=== PATIENT | female | born 1950 | race Caucasian/White ===

== ENCOUNTER 2023-10-17 12:56 | Outpatient (REF) | payer MEDICARE, MEDICAID, SELFPAY ==
[2023-10-17 15:30] LABS: INR 3.65
== END 2023-10-17 12:57 | disposition home or self-care (01) ==
LOC: LAB 12:56
DX: Z79.01 Long term (current) use of anticoagulants (principal)
CPT/HCPCS: 36415; 85610

== ENCOUNTER 2024-05-12 07:44 | Emergency (ER) | payer MEDICARE, MEDICAID, SELFPAY ==
[2024-05-12] VITALS (35 sets, daily range): BP systolic 121–152; BP diastolic 61–120; PULSE 76–94; RESP 14; TEMP 36.6; O2SAT 81–100; BMI 18.5
--- NOTE | 2024-05-12 07:48 | ECG_ITS ---
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
--- NOTE | 2024-05-12 07:54 | ED_ITS ---
HPI HPI - General Adult General Chief complaint: Altered Mental Status Stated complaint: ALTERED MENTAL STATUS Time Seen by Provider: 05/12/24 07:48 History of Present Illness HPI narrative: Patient is a 73-year-old female who is presenting to the ER with chief complaint of hypoxia, intermittent confusion change in mental status and in and out of consciousness per nursing staff. Patient is supposed to be wearing BiPAP at nighttime, patient was nauseated last evening so she was not wearing her BiPAP. Nursing staff states that she will only wear 2 or 3 hours every night. Patient has a long list of comorbidities, please see her jail paperwork for her diagnosis and comorbidities. Patient is coming from [facility]. Patient has had a left femoral neck fracture, patient has had a fracture around her prosthesis in January 2024. Patient has a history respiratory failure with hypoxia, hypothyroidism, depression, metabolic encephalopathy, pulmonary hypertension, PE. Patient is on Coumadin. All systems are negative except as noted/marked. All systems reviewed and otherwise negative. Nurses note and vital signs reviewed and patient is not hypoxic. General: The patient appears well and in no apparent distress. Patient is rest ing comfortably on cart. Patient is not toxic, lethargic, or listless Skin: Warm, dry, no pallor noted. There is no rash noted. No petechiae, purpura. Head: Normocephalic, atraumatic Eye: Normal conjunctiva, no drainage, EOMI. PERRL Ears, Nose, Mouth, and Throat: oral mucosa is moist. Nares patent. Mouth without vesicles. Cardiovascular: Regular Rate and Rhythm, no murmur, gallop, rub Respiratory: Patient is in no distress, no accessory muscle use, lungs are clear to auscultation, no wheezing, rales or rhonchi Back: non-tender, no CVA tenderness bilaterally to percussion. No CT LS midline pain GI: no tenderness to palpation, no masses appreciated. No rebound, guarding, or rigidity noted. No distention Musculoskeletal: Patient has full range of motion of all of the extremities, no motor, sensory, or focal neurological deficits Neurological: A&O x4, normal speech Psychiatric: Cooperative Related Data Home Medications ?Medication ?Instructions ?Recorded ?Confirmed acetazolamide 250 mg tablet 250 mg PO DAILY 05/12/24 05/12/24 albuterol sulfate 2.5 mg/0.5 mL 2.5 mg inhalation TID-QID PRN 05/12/24 05/12/24 solution for nebulization shortness of breath or wheezing amlodipine 2.5 mg tablet (Norvasc) 2.5 mg PO DAILY 05/12/24 05/12/24 ascorbic acid (vitamin C) 500 mg 500 mg PO BID 05/12/24 05/12/24 capsule,extended release doxycycline hyclate 100 mg tablet mg 05/12/24 furosemide 20 mg tablet 20 mg PO DAILY 05/12/24 05/12/24 levothyroxine 50 mcg tablet 50 mcg PO DAILY 05/12/24 05/12/24 mirtazapine 7.5 mg tablet 7.5 mg PO .qhs 05/12/24 05/12/24 ondansetron HCl 4 mg tablet 4 mg PO DAILY 05/12/24 05/12/24 paroxetine HCl 40 mg tablet 40 mg PO DAILY 05/12/24 05/12/24 potassium chloride 10 mEq 20 meq PO DAILY 05/12/24 05/12/24 tablet,extended release warfarin 3 mg tablet 3 mg PO DAILY 05/12/24 05/12/24 Allergies Allergy/AdvReac Type Severity Reaction Status Date / Time citalopram AdvReac Intermediate Unknown Verified 05/12/24 08:12 codeine AdvReac Intermediate Unknown Verified 05/12/24 08:12 phenylephrine (From AdvReac Intermediate Unknown Verified 05/12/24 08:12 PediaCare Decongestant (PE)) propoxyphene AdvReac Intermediate Unknown Verified 05/12/24 08:12 propranolol AdvReac Intermediate Unknown Verified 05/12/24 08:12 Sulfa (Sulfonamide AdvReac Intermediate Unknown Verified 05/12/24 08:12 Antibiotics) tetracycline AdvReac Intermediate Unknown Verified 05/12/24 08:12 venlafaxine AdvReac Intermediate Unknown Verified 05/12/24 08:12 cephalexin AdvReac Mild Unknown Verified 05/12/24 08:12 Opioid HPI Opioid Management Most Recent Opioid Data: Last Pain Scale 0 05/12/24 08:13 05/12/24 PFSH PFSH Social History Little interest or pleasure in doing things: not at all Feeling down, depressed, or hopeless: not at all Exam Constitutional Vital Signs, click to edit/add: Last Vital Signs Temp 97.9 F 05/12/24 07:53 Pulse 89 05/12/24 12:30 Resp 14 05/12/24 12:30 BP 121/61 05/12/24 10:52 Pulse Ox 97 05/12/24 12:00 O2 Del Method Room Air 05/12/24 08:13 O2 Flow Rate 2 05/12/24 08:13 FiO2 30 05/12/24 10:46 Course Vital Signs Vital signs: Vital Signs Pulse Rate 90 05/12/24 07:51 Respiratory Rate 17 05/12/24 07:51 Pulse Oximetry 81 L 05/12/24 07:51 Temperature 97.9 F 05/12/24 07:53 Pulse Rate 89 05/12/24 12:30 Respiratory Rate 14 05/12/24 12:30 Blood Pressure 121/61 05/12/24 10:52 Pulse Oximetry 97 05/12/24 12:00 Oxygen Delivery Method Room Air 05/12/24 08:13 Oxygen Delivery Flow Rate 2 05/12/24 08:13 Fraction of Inspired Oxygen 30 05/12/24 10:46 Medical Decision Making MDM Narrative Medical decision making narrative: Patient was recommended for observation admission secondary to hypercarbia. Patient is alert and orient x 3, has a functional decision-making capacity to refuse admission which she is. Patient is agreeing to BiPAP. Patient stated she did not use BiPAP last night because she was nauseated. Patient wanted nausea medication several hours prior to being placed on BiPAP. They gave her the nausea medication right before bedtime so patient did not want to be on BiPAP when she was nauseated. Patient is not nauseous right now. She has no symptoms. Patient is agreeing to be placed on BiPAP for 3 to 4 hours, but she is refusing admission to the hospital overnight. Patient has a functional decision-making opacity to do this, shared decision making was done with myself, Susannah SAENZ at bedside along with the patient. 0930 patient is asking what time it is, if she is able to leave at this time. Patient is agreeing to BiPAP for few more hours at this time. Patient COVID is negative, patient's pCO2 was 86. 1030 patient's monitor blood pressures have been reading high, please see manual blood pressures that have been done which are accurate, in normal range. 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 Patient tremors may be throwing off monitor blood pressures. 1130 patient has pulled off her BiPAP mask, respiratory staff reassessed patient. Patient is refusing to wear the BiPAP mask any longer, she is maintaining oxygen above 90s with 2 L nasal cannula. Patient still does not want to be admitted to the hospital, she like to go back to nursing facility. 1200 patient will be leaving as medical advice. Patient is alert and orient x 4, does have the functional decision making capacity to refuse any additional care. Patient will follow-up with PCP. Dr. Burton is aware by a phone call at 1245 that patient is leaving AGAINST MEDICAL ADVICE. We did discuss patient's care at the ER today, her nausea last night, refusing to wear BiPAP last night, no nausea today, agreeing to wear BiPAP in the ER for short-term and tonight. Patient does not want to be admitted to the hospital. Lab Data Labs: Lab Results 05/12/24 05/12/24 Range/Units 07:55 08:00 WBC 4.5 (4.0-11.0) 10^3/uL RBC 4.65 (4.20-5.40) 10^6/uL Hgb 13.0 (12.0-16.0) g/dL Hct 44.5 (36.0-48.0) % MCV 95.7 (81.0-99.0) fL MCH 28.0 (26.7-34.0) pg MCHC 29.2 L (29.9-35.2) g/dL RDW 13.9 (11.0-15.0) % Plt Count 162 (150-450) 10^3/uL MPV 9.9 (9.5-13.5) fL Neut % (Auto) 74.2 (43.0-75.0) % Lymph % (Auto) 16.7 L (20.5-60.0) % [place] % (Auto) 7.6 (1.7-12.0) % Eos % (Auto) 0.4 L (0.9-7.0) % Baso % (Auto) 0.4 (0.2-2.0) % Neut # (Auto) 3.3 (1.4-6.5) 10^3/uL Lymph # (Auto) 0.8 L (1.2-3.8) 10^3/uL [place] # (Auto) 0.3 (0.3-0.8) 10^3/uL Eos # (Auto) 0.0 (0.0-0.7) 10^3/uL Baso # (Auto) 0.0 (0.0-0.1) 10^3/uL Abs Immat Gran (auto) 0.03 (0.00-0.03) 10^3/uL Imm/Tot Granulo (auto) 0.7 H (0.0-0.5) % PT 20.3 H (9.0-11.6) sec INR 2.06 VBG pH 7.205 L (7.330-7.430) VBG pCO2 85.9 H* (40.0-52.0) mmHg Sodium 145 (136-145) mmol/L Potassium 4.0 (3.5-5.1) mmol/L Chloride 106 (98-107) mmol/L Carbon Dioxide 34.3 H (21.0-32.0) mmol/L Anion Gap 8.7 BUN 19.0 H (7.0-18.0) mg/dL Creatinine 0.55 (0.55-1.02) mg/dL Est GFR ( Amer) >60 (>=60 mL/min/1.73m^2) Est GFR (Non-Af Amer) >60 (>=60 mL/min/1.73m^2) BUN/Creatinine Ratio 34.5 Glucose 105 (74-106) mg/dL Lactate 0.5 (0.4-2.0) mmol/L Calcium 8.9 (8.5-10.1) mg/dL Magnesium 2.1 (1.8-2.4) mg/dL Total Bilirubin 0.3 (0.2-1.0) mg/dL AST 18 (15-37) U/L ALT 10 L (14-59) U/L Alkaline Phosphatase 100 (46-116) U/L Troponin I High Sens 11.6 (4.0-51.3) pg/mL NT-Pro-B Natriuret Pep 374.0 (<=900.0) pg/mL Total Protein 6.8 (6.4-8.2) g/dL Albumin 3.4 (3.4-5.0) g/dL Globulin 3.4 g/dL Albumin/Globulin Ratio 1.0 Lipase 45.0 (16.0-77.0) U/L TSH 2.185 (0.358-3.740) uIU/mL SARS-CoV-2 Ag (CV2AG) Negative (NEGATIVE) ECG Data Attestation: I personally reviewed and interpreted this ECG as follows: (EKG interpretation. Normal sinus rhythm at 95 beats a minute. Normal axis deviation. No acute ST elevation, no acute ectopy. QTc of 414. Artifact n oted.) Discharge Plan Discharge Stand Alone Forms: Portal Instructions Chief Complaint: Altered Mental Status Clinical Impression: Hypercarbia, Hypoxia, Left against medical advice Patient Disposition: Left Against Medical Advice Condition: Fair Prescriptions / Home Meds: No Action acetazolamide 250 mg tablet 250 mg PO DAILY furosemide 20 mg tablet 20 mg PO DAILY warfarin 3 mg tablet 3 mg PO DAILY albuterol sulfate 2.5 mg/0.5 mL solution for nebulization 2.5 mg inhalation TID-QID PRN (Reason: shortness of breath or wheezing) ascorbic acid (vitamin C) 500 mg capsule, extended release 500 mg PO BID levothyroxine 50 mcg tablet 50 mcg PO DAILY mirtazapine 7.5 mg tablet 7.5 mg PO .qhs amlodipine [Norvasc] 2.5 mg tablet 2.5 mg PO DAILY ondansetron HCl 4 mg tablet 4 mg PO DAILY paroxetine HCl 40 mg tablet 40 mg PO DAILY potassium chloride 10 mEq tablet extended release 20 meq PO DAILY doxycycline hyclate 100 mg tablet Print Language: Fijian Instructions: Against Medical Advice (ED), Hypoxemia (DC), Pulmonary Function Tests (DC) Additional Instructions: Dr. Burton is aware that patient is coming back to the nursing facility. Patient was on BiPAP for 2 to 3 hours until she refused to have any more BiPAP. Patient will wear BiPAP tonight. Patient has maintain oxygen levels 1 to 2 L of oxygen. Patient did not want to be admitted to the hospital overnight for elevated, and oxide levels. Referrals: ANNIE BURTON [Primary Care Provider] - 1 week
[2024-05-12 08:03] LABS: Basophils Percent Auto 0.4 % (0.2-2.0); Eosinophils Percent Auto 0.4 % (0.9-7.0); Hematocrit 44.5 % (36.0-48.0); Immature Granulocytes Abs Auto 0.03 10^3/uL (0.00-0.03); Immature Granulocytes Pct Auto 0.7 % (0.0-0.5); Lymphocytes Absolute Auto 0.8 10^3/uL (1.2-3.8); Lymphocytes Percent Auto 16.7 % (20.5-60.0); Mean Corpuscular HGB Conc 29.2 g/dL (29.9-35.2); Mean Corpuscular Volume 95.7 fL (81.0-99.0); Mean Platelet Volume 9.9 fL (9.5-13.5); Monocytes Absolute Auto 0.3 10^3/uL (0.3-0.8); Monocytes Percent Auto 7.6 % (1.7-12.0); Neutrophils Absolute Auto 3.3 10^3/uL (1.4-6.5); Neutrophils Percent Auto 74.2 % (43.0-75.0); Platelet Count 162 10^3/uL (150-450); Red Blood Count 4.65 10^6/uL (4.20-5.40); Red Cell Distribution Width 13.9 % (11.0-15.0); White Blood Count 4.5 10^3/uL (4.0-11.0)
[2024-05-12 08:04] LABS: pH VBG 7.205 (7.330-7.430)
[2024-05-12 08:06] LABS: PCO2 VBG 85.9 mmHg (40.0-52.0)
[2024-05-12 08:18] LABS: INR 2.06; Prothrombin Time 20.3 sec (9.0-11.6)
[2024-05-12 08:23] LABS: Lactate/Lactic Acid 0.5 mmol/L (0.4-2.0)
[2024-05-12] MEDS: ONDANSETRON PF 4 MG/2 ML VIAL IV (08:24)
[2024-05-12 08:32] LABS: Alanine Aminotransferase 10 U/L (14-59); Albumin Level 3.4 g/dL (3.4-5.0); Alkaline Phosphatase 100 U/L (46-116); Anion Gap 8.7; Aspartate Amino Transferase 18 U/L (15-37); BUN Creatinine Ratio 34.5; Bilirubin Total 0.3 mg/dL (0.2-1.0); Calcium 8.9 mg/dL (8.5-10.1); Carbon Dioxide 34.3 mmol/L (21.0-32.0); Chloride 106 mmol/L (98-107); Estimated GFR (African America >60 (>=60 mL/min/1.73m^2); Estimated GFR (Non-African Ame >60 (>=60 mL/min/1.73m^2); Globulin 3.4 g/dL; Glucose 105 mg/dL (74-106); Sodium 145 mmol/L (136-145); Total Protein 6.8 g/dL (6.4-8.2)
[2024-05-12 08:35] LABS: Magnesium 2.1 mg/dL (1.8-2.4); Troponin I High Sensitivity 11.6 pg/mL (4.0-51.3)
[2024-05-12 08:36] LABS: Thyroid Stimulating Hormone 2.185 uIU/mL (0.358-3.740)
--- NOTE | 2024-05-12 08:46 | XR_ITS ---
The [address] [address] Patient Name: STEF WATTS MRN: [id number] date: 1950 Sex: F Assigned Patient Location: ED.MAIN Current Patient Location: ER Accession/Order Number: [id number] Exam Date: 05/12/2024 08:40 Report Date: 05/12/2024 09:09 At the request of: TERRY SEN Procedure: XR chest 1V EXAM: Chest x-ray HISTORY: . sob . COMPARISON: None TECHNIQUE: Total view of the chest FINDINGS: The patient's chin overlies left apex. Heart is upper limits of normal in size. Vascularity is unremarkable. Right lung is unremarkable. There is slight increased density in the left lung base along with blunting of left cost phrenic angle. EKG leads overlie the chest. XR/XR chest 1V IMPRESSION: 1. Slight cardiac enlargement. 2. Atelectasis versus early infiltrate in the left lung base. 3. Blunting of left costophrenic angle. Findings could be due to scarring or small effusion. Electronically authenticated by: JOSE VEGA Date: 05/12/2024 09:09
[2024-05-12 08:47] LABS: Internal Control Within Normal Limits; SARS-CoV-2 Ag NEGATIVE (NEGATIVE)
--- NOTE | 2024-05-12 12:58 | ED_ITS ---
HPI HPI - General Adult General Chief complaint: Altered Mental Status Stated complaint: ALTERED MENTAL STATUS Time Seen by Provider: 05/12/24 07:48 Source: patient Mode of arrival: ambulance Limitations: no limitations Related Data Home Medications ?Medication ?Instructions ?Recorded ?Confirmed acetazolamide 250 mg tablet 250 mg PO DAILY 05/12/24 05/12/24 albuterol sulfate 2.5 mg/0.5 mL 2.5 mg inhalation TID-QID PRN 05/12/24 05/12/24 solution for nebulization shortness of breath or wheezing amlodipine 2.5 mg tablet (Norvasc) 2.5 mg PO DAILY 05/12/24 05/12/24 ascorbic acid (vitamin C) 500 mg 500 mg PO BID 05/12/24 05/12/24 capsule,extended release doxycycline hyclate 100 mg tablet mg 05/12/24 furosemide 20 mg tablet 20 mg PO DAILY 05/12/24 05/12/24 levothyroxine 50 mcg tablet 50 mcg PO DAILY 05/12/24 05/12/24 mirtazapine 7.5 mg tablet 7.5 mg PO .qhs 05/12/24 05/12/24 ondansetron HCl 4 mg tablet 4 mg PO DAILY 05/12/24 05/12/24 paroxetine HCl 40 mg tablet 40 mg PO DAILY 05/12/24 05/12/24 potassium chloride 10 mEq 20 meq PO DAILY 05/12/24 05/12/24 tablet,extended release warfarin 3 mg tablet 3 mg PO DAILY 05/12/24 05/12/24 Allergies Allergy/AdvReac Type Severity Reaction Status Date / Time citalopram AdvReac Intermediate Unknown Verified 05/12/24 08:12 codeine AdvReac Intermediate Unknown Verified 05/12/24 08:12 phenylephrine (From AdvReac Intermediate Unknown Verified 05/12/24 08:12 PediaCare Decongestant (PE)) propoxyphene AdvReac Intermediate Unknown Verified 05/12/24 08:12 propranolol AdvReac Intermediate Unknown Verified 05/12/24 08:12 Sulfa (Sulfonamide AdvReac Intermediate Unknown Verified 05/12/24 08:12 Antibiotics) tetracycline AdvReac Intermediate Unknown Verified 05/12/24 08:12 venlafaxine AdvReac Intermediate Unknown Verified 05/12/24 08:12 cephalexin AdvReac Mild Unknown Verified 05/12/24 08:12 Opioid HPI Opioid Management Most Recent Opioid Data: Last Pain Scale 0 05/12/24 08:13 05/12/24 PFSH PFSH Social History Little interest or pleasure in doing things: not at all Feeling down, depressed, or hopeless: not at all Exam Constitutional Vital Signs, click to edit/add: Last Vital Signs Temp 97.9 F 05/12/24 07:53 Pulse 89 05/12/24 12:30 Resp 14 05/12/24 12:30 BP 121/61 05/12/24 10:52 Pulse Ox 97 05/12/24 12:00 O2 Del Method Room Air 05/12/24 08:13 O2 Flow Rate 2 05/12/24 08:13 FiO2 30 05/12/24 10:46 Course Vital Signs Vital signs: Vital Signs Pulse Rate 90 05/12/24 07:51 Respiratory Rate 17 05/12/24 07:51 Pulse Oximetry 81 L 05/12/24 07:51 Temperature 97.9 F 05/12/24 07:53 Pulse Rate 89 05/12/24 12:30 Respiratory Rate 14 05/12/24 12:30 Blood Pressure 121/61 05/12/24 10:52 Pulse Oximetry 97 05/12/24 12:00 Oxygen Delivery Method Room Air 05/12/24 08:13 Oxygen Delivery Flow Rate 2 05/12/24 08:13 Fraction of Inspired Oxygen 30 05/12/24 10:46 Medical Decision Making Lab Data Labs: Lab Results 05/12/24 05/12/24 Range/Units 07:55 08:00 WBC 4.5 (4.0-11.0) 10^3/uL RBC 4.65 (4.20-5.40) 10^6/uL Hgb 13.0 (12.0-16.0) g/dL Hct 44.5 (36.0-48.0) % MCV 95.7 (81.0-99.0) fL MCH 28.0 (26.7-34.0) pg MCHC 29.2 L (29.9-35.2) g/dL RDW 13.9 (11.0-15.0) % Plt Count 162 (150-450) 10^3/uL MPV 9.9 (9.5-13.5) fL Neut % (Auto) 74.2 (43.0-75.0) % Lymph % (Auto) 16.7 L (20.5-60.0) % [place] % (Auto) 7.6 (1.7-12.0) % Eos % (Auto) 0.4 L (0.9-7.0) % Baso % (Auto) 0.4 (0.2-2.0) % Neut # (Auto) 3.3 (1.4-6.5) 10^3/uL Lymph # (Auto) 0.8 L (1.2-3.8) 10^3/uL [place] # (Auto) 0.3 (0.3-0.8) 10^3/uL Eos # (Auto) 0.0 (0.0-0.7) 10^3/uL Baso # (Auto) 0.0 (0.0-0.1) 10^3/uL Abs Immat Gran (auto) 0.03 (0.00-0.03) 10^3/uL Imm/Tot Granulo (auto) 0.7 H (0.0-0.5) % PT 20.3 H (9.0-11.6) sec INR 2.06 VBG pH 7.205 L (7.330-7.430) VBG pCO2 85.9 H* (40.0-52.0) mmHg Sodium 145 (136-145) mmol/L Potassium 4.0 (3.5-5.1) mmol/L Chloride 106 (98-107) mmol/L Carbon Dioxide 34.3 H (21.0-32.0) mmol/L Anion Gap 8.7 BUN 19.0 H (7.0-18.0) mg/dL Creatinine 0.55 (0.55-1.02) mg/dL Est GFR ( Amer) >60 (>=60 mL/min/1.73m^2) Est GFR (Non-Af Amer) >60 (>=60 mL/min/1.73m^2) BUN/Creatinine Ratio 34.5 Glucose 105 (74-106) mg/dL Lactate 0.5 (0.4-2.0) mmol/L Calcium 8.9 (8.5-10.1) mg/dL Magnesium 2.1 (1.8-2.4) mg/dL Total Bilirubin 0.3 (0.2-1.0) mg/dL AST 18 (15-37) U/L ALT 10 L (14-59) U/L Alkaline Phosphatase 100 (46-116) U/L Troponin I High Sens 11.6 (4.0-51.3) pg/mL NT-Pro-B Natriuret Pep 374.0 (<=900.0) pg/mL Total Protein 6.8 (6.4-8.2) g/dL Albumin 3.4 (3.4-5.0) g/dL Globulin 3.4 g/dL Albumin/Globulin Ratio 1.0 Lipase 45.0 (16.0-77.0) U/L TSH 2.185 (0.358-3.740) uIU/mL SARS-CoV-2 Ag (CV2AG) Negative (NEGATIVE) Discharge Plan Discharge Stand Alone Forms: Portal Instructions Chief Complaint: Altered Mental Status Clinical Impression: Hypercarbia, Hypoxia, Left against medical advice Patient Disposition: Left Against Medical Advice Condition: Fair Prescriptions / Home Meds: No Action acetazolamide 250 mg tablet 250 mg PO DAILY furosemide 20 mg tablet 20 mg PO DAILY warfarin 3 mg tablet 3 mg PO DAILY albuterol sulfate 2.5 mg/0.5 mL solution for nebulization 2.5 mg inhalation TID-QID PRN (Reason: shortness of breath or wheezing) ascorbic acid (vitamin C) 500 mg capsule, extended release 500 mg PO BID levothyroxine 50 mcg tablet 50 mcg PO DAILY mirtazapine 7.5 mg tablet 7.5 mg PO .qhs amlodipine [Norvasc] 2.5 mg tablet 2.5 mg PO DAILY ondansetron HCl 4 mg tablet 4 mg PO DAILY paroxetine HCl 40 mg tablet 40 mg PO DAILY potassium chloride 10 mEq tablet extended release 20 meq PO DAILY doxycycline hyclate 100 mg tablet Print Language: Turkish Instructions: Against Medical Advice (ED), Hypoxemia (DC), Pulmonary Function Tests (DC) Additional Instructions: Dr. Burton is aware that patient is coming back to the nursing facility. Patient was on BiPAP for 2 to 3 hours until she refused to have any more BiPAP. Patient will wear BiPAP tonight. Patient has maintain oxygen levels 1 to 2 L of oxygen. Patient did not want to be admitted to the hospital overnight for elevated, and oxide levels. Referrals: ANNIE BURTON [Primary Care Provider] - 1 week
== END 2024-05-12 13:07 | disposition left against medical advice (07) ==
PROVIDERS: Emergency Provider Emergency Medicine; PCP Family Medicine
DX: R06.89 Other abnormalities of breathing (principal); R09.02 Hypoxemia; Z53.29 Procedure and treatment not carried out because of patient's decision for other reasons; E03.9 Hypothyroidism, unspecified; F32.A Depression, unspecified; Z86.711 Personal history of pulmonary embolism; I27.20 Pulmonary hypertension, unspecified; Z87.81 Personal history of (healed) traumatic fracture
CPT/HCPCS: 36415; 71045; 80053; 81001; 82800; 83605; 83690; 83735; 83880; 84443; 84484; 85025; 85610; 87811; 93005; 94660; 96374; 99285; J2405